=== PATIENT | female | born 1955 | race Caucasian/White ===

== ENCOUNTER 2018-11-17 21:33 | Emergency (ER) | payer OTHER ==
[~2018-11-17] VITALS: Ht 149.9 cm; Wt 73.8 kg
[~2018-11-17 21:33] MED LIST: ACET325T40 PO; AMOX500C2 PO; BISA-57 PO; CIPR500T4 PO; FAMO-95 PO; HYDR-3498 PO; HYDR-4011 PO; IBUP-1542 PO
[2018-11-17 21:46] VITALS: Ht 149.9 cm; Wt 73.8 kg
--- NOTE | 2018-11-18 01:24 | ERD ---
ER Documentation Chief Complaint Chief Complaint RT flank pain x3days, pelvic pain x3wks, dysuria/hematuria HPI 63-year-old female presenting with right-sided flank pain for the past 3 days. The pain initially started in the right lower quadrant and is now radiating to the right flank. The pain is constant, throbbing, with no alleviating or exacerbating factors. She is having frequency in urination but denies any hematuria. No fevers or chills. No nausea or vomiting. 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 ROS All systems reviewed and are negative except as per history of present illness. Medications Home Meds Active Scripts Ibuprofen* (Ibuprofen*) 600 Mg Tablet, 600 MG PO Q6H PRN for PAIN, #30 TAB Prov:LYNDSEY KATZ MD 11/18/18 Ciprofloxacin Hcl* (Ciprofloxacin Hcl*) 500 Mg Tablet, 500 MG PO BID for 7 Days, TAB Prov:LYNDSEY KATZ MD 11/18/18 Ibuprofen* (Motrin*) 600 Mg Tab, 600 MG PO Q8, #15 TAB Prov:REJI DORANTES DO 03/05/16 Famotidine* (Pepcid* AC) 20 Mg Tab, 20 MG PO BID for 28 Days, TAB Prov:COOPER JOHNSON MD 06/30/15 Reported Medications Metformin Hcl* (Metformin Hcl*) 1,000 Mg Tablet, 1000 MG PO BID for 30 Days, #60 TAKE 1 TABLET BY MOUTH WITH MEALS TWICE A DAY 11/18/18 Simvastatin (Simvastatin) 20 Mg Tablet, 20 MG PO QHS for 30 Days, #30 11/18/18 Lisinopril* (Lisinopril*) 20 Mg Tablet, 20 MG PO DAILY for 90 Days, #90 11/18/18 Discontinued Scripts Amoxicillin* (Amoxicillin*) 500 Mg Cap, 500 MG PO TID for 7 Days, CAP Prov:REJI DORANTES DO 03/05/16 Hydrocodone/Acetaminophen (Irmo 5-325 Tablet) 1 Each Tablet, 1 TAB PO Q6H PRN for PAIN, #15 TAB Prov:REJI DORANTES DO 03/05/16 Ciprofloxacin Hcl* (Ciprofloxacin Hcl*) 500 Mg Tablet, 500 MG PO BID for 7 Days, TAB Prov:PAM DE ANDA 12/12/15 Hydrocodone Bit/Acetaminophen (Anexsia 5-325 Mg Tablet) 1 Tab Tab, 1 TAB PO Q6H PRN for PAIN LEVEL 6-10 for 10 Days, TAB Prov:COOPER JOHNSON MD 06/30/15 Bisacodyl* (Dulcolax*) 5 Mg Tabec, 5 MG PO DAILY PRN for CONSTIPATION for 14 Days, BOX Prov:COOPER JOHNSON MD 06/30/15 Acetaminophen (MAPAP) 325 Mg Tab, 650 MG PO Q6H PRN for PAIN AND OR ELEVATED TEMP for 14 Days, TAB Prov:COOPER JOHNSON MD 06/30/15 Allergies Allergies: Coded Allergies: No Known Allergy (Unverified , 11/18/18) PMhx/Soc History of Surgery: Yes (Total abdominal hysterectomy, BSO, cholecystectomy) Anesthesia Reaction: No Hx Neurological Disorder: No Hx Respiratory Disorders: No Hx Cardiac Disorders: Yes (htn, high cholesterol) Hx Psychiatric Problems: No Hx Miscellaneous Medical Probl: Yes (Ovarian masses) Hx Alcohol Use: No Hx Substance Use: No Hx Tobacco Use: No FmHx Family History: No diabetes Physical Exam Vitals Vital Signs Date Temp Pulse Resp B/P (MAP) Pulse Ox O2 O2 Flow FiO2 Time Delivery Rate 11/17/18 99.3 69 20 126/81 96 21:46 (96) Physical Exam Const: No acute distress Head: Atraumatic Eyes: Normal Conjunctiva ENT: Normal External Ears, Nose and Mouth. Neck: Full range of motion. No meningismus. Resp: Clear to auscultation bilaterally Cardio: Regular rate and rhythm, no murmurs Abd: Surgical scar noted, well-healed. Mild right soft, lower quadrant tenderness., non distended. Normal bowel sounds Skin: No petechiae or rashes Back: Right CVA tenderness Ext: No cyanosis, or edema Neur: Awake and alert Psych: Normal Mood and Affect Result Diagram: 11/18/1813911/18/18139 Results 24 hrs Laboratory Tests Test 11/18/18 01:30 11/18/18 01:40 Urine Color YELLOW Urine Clarity CLOUDY Urine pH 6.0 Urine Specific [place] 1.011 Urine Ketones NEGATIVE mg/dL Urine Nitrite POSITIVE mg/dL Urine Bilirubin NEGATIVE mg/dL Urine Urobilinogen NEGATIVE mg/dL Urine Leukocyte Esterase 3+ Sirena/ul Urine Microscopic RBC 8 /HPF Urine Microscopic WBC 77 /HPF Urine Squamous Epithelial Cells FEW /HPF Urine Bacteria FEW /HPF Urine Mucus FEW /HPF Urine Hemoglobin 1+ mg/dL Urine Glucose 1+ mg/dL Urine Total Protein NEGATIVE mg/dl White Blood Count 11.7 10^3/ul Red Blood Count 4.70 10^6/ul Hemoglobin 13.7 g/dl Hematocrit 42.3 % Mean Corpuscular Volume 90.0 fl Mean Corpuscular Hemoglobin 29.1 pg Mean Corpuscular Hemoglobin Concent 32.4 g/dl Red Cell Distribution Width 12.9 % Platelet Count 287 10^3/UL Mean Platelet Volume 10.7 fl Immature Granulocytes % 0.300 % Neutrophils % 55.8 % Lymphocytes % 34.4 % Monocytes % 7.9 % Eosinophils % 1.3 % Basophils % 0.3 % Nucleated Red Blood Cells % 0.0 /100WBC Immature Granulocytes # 0.030 10^3/ul Neutrophils # 6.5 10^3/ul Lymphocytes # 4.0 10^3/ul Monocytes # 0.9 10^3/ul Eosinophils # 0.2 10^3/ul Basophils # 0.0 10^3/ul Nucleated Red Blood Cells # 0.0 10^3/ul Sodium Level 142 mmol/L Potassium Level 4.2 mmol/L Chloride Level 103 mmol/L Carbon Dioxide Level 31 mmol/L Anion Gap 8 Blood Urea Nitrogen 8 mg/dl Creatinine 0.39 mg/dl Est Glomerular Filtrat Rate mL/min > 60 mL/min Glucose Level 213 mg/dl Calcium Level 9.7 mg/dl Total Bilirubin 0.8 mg/dl Direct Bilirubin 0.00 mg/dl Indirect Bilirubin 0.8 mg/dl Aspartate Amino Transf (AST/SGOT) 17 IU/L Alanine Aminotransferase (ALT/SGPT) 14 IU/L Alkaline Phosphatase 117 IU/L Total Protein 8.4 g/dl Albumin 4.3 g/dl Globulin 4.10 g/dl Albumin/Globulin Ratio 1.04 Lipase 113 U/L Current Medications Medications Dose Sig/Sarahi Start Time Status Last (Trade) Ordered Route PRN Stop Time Admin Dose Reason Admin Sodium 1,000 ml @ Q1H STAT 11/18/18 DC 11/18/18 Chloride 1,000 mls/hr IV 01:33 01:59 11/18/18 02:32 Morphine 4 mg ONCE STAT 11/18/18 DC 11/18/18 Sulfate IV : 01:59 (morphine) 11/18/18 01:35 Ondansetron 4 mg ONCE STAT 11/18/18 DC 11/18/18 HCl (Zofran IV :33 01:59 Inj) 11/18/18 01:35 Ceftriaxone 50 ml @ ONCE ONCE 11/18/18 DC 11/18/18 Sodium 100 mls/hr IVPB 03:00 02:54 11/18/18 03:29 Procedures/MDM EMERGENT LABS AND DIAGNOSTIC STUDIES: Lab Results above were reviewed and interpreted by me. CBC: no anemia or evidence of infection CMP: No evidence of clinically significant electrolyte abnormality, acidosis, renal failure, hypoglycemia, liver disease, or biliary obstruction UA: Evidence of infection Radiology Results as interpreted by Radiology below were reviewed by Abimael Katz MD: CT abdomen pelvis shows evidence of right-sided pyelonephritis Initial Nursing notes reviewed. Previous Medical Records requested via the Electronic Health Record. EMERGENCY DEPARTMENT COURSE / MEDICAL DECISION MAKING: Patient is presenting with right-sided flank pain and abdominal pain. Vitals are unremarkable and she is afebrile with no signs of sepsis. Work-up is consistent with pyelonephritis with a positive urine and evidence of pyelo-on CT scan. Patient was treated with IV fluids, pain medications, and IV antibiotics. Patient does feel much better upon reevaluation. She is stable for discharge with outpatient antibiotics and continued outpatient follow-up. Return p recautions given. Prescription for Cipro given. Pain control recommended with ibuprofen as needed. Patient's blood pressure was elevated (>120/80) but appears stable without evidence of hypertensive emergency or urgency. The patient was counseled about the risks of hypertension and urged to pursue outpatient monitoring and therapy within a week with their primary care physician. Departure Diagnosis: Primary Impression: Pyelonephritis Condition: Stable LYNDSEY KATZ MD November 18, 2018 01:24
[2018-11-18] MEDS ORDERED: SOD CHLORIDE 0.9% 1,000 ML IV STA (01:33)
[2018-11-18] MEDS ORDERED: morphine 4 MG/ML VIAL IV STA (01:33)
[2018-11-18] MEDS ORDERED: ONDANSETRON 4 MG INJ IV STA (01:33)
[2018-11-18] MEDS ORDERED: SIMV20TA20 PO (02:00)
[2018-11-18] MEDS ORDERED: METF100010 PO (02:00)
[2018-11-18] MEDS ORDERED: LISI-471 PO (02:00)
[2018-11-18] MEDS ORDERED: CEFTRIAXONE 1 GM/50 ML (PMX) 50 ML IVPB ONE (03:00)
[2018-11-18] MEDS ORDERED: IBUP-1542 PO (03:58)
[2018-11-18] MEDS ORDERED: CIPR500T4 PO (03:58)
[2018-11-18 03:59] VITALS: BP 110/56; PULSE 59; RESP 16
== END 2018-11-18 04:12 | disposition home or self-care (01) ==
LOC: E/R 21:33
DX: N12 Tubulo-interstitial nephritis, not specified as acute or chronic (principal); I10 Essential (primary) hypertension; Z79.84 Long term (current) use of oral hypoglycemic drugs
CPT/HCPCS: 36415; 74176; 80053; 81001; 83690; 85025; 87086; 96361; 96374; 96375; J0696; J2270; J2405; J7030; Z7502